=== PATIENT | male | born 1975 | race Caucasian/White ===

== ENCOUNTER 2021-04-15 14:37 | Emergency (ER) | payer SELFPAY ==
[~2021-04-15] VITALS: Ht 172.7 cm; Wt 95.2 kg
[2021-04-15] MEDS ORDERED: POTASSIUM CHLO20 ME1 PO (19:01)
[2021-04-15] MEDS ORDERED: LISINOPRIL10 MG PO (19:01)
[2021-04-15] MEDS ORDERED: LASIX40 MG PO (19:01)
[2021-04-15] MEDS ORDERED: TOPROL XL50 MG PO (19:01)
--- NOTE | 2021-04-15 19:18 | EKG ---
[facility] [address] [facility] [place], [place] [address] Signed Sinus tachycardia Nonspecific T wave abnormality Abnormal ECG No previous ECGs available Confirmed by JACOB VINSON DO ([id number]) on 04/15/2021 7:18:18 PM Electronically Signed By: JACOB VINSON DO 04/15/211917 PATIENT NAME: MILDRED ROBBINS Electrocardiogram DATE OF : 73 PHYSICIAN: JACOB VINSON DO REPORT #: [id number] REPORT IS CONFIDENTIAL AND NOT TO BE RELEASED WITHOUT AUTHORIZATION
== END 2021-04-15 19:27 | disposition home or self-care (01) ==
LOC: ED 14:37
DX: I16.0 Hypertensive urgency (principal); I11.0 Hypertensive heart disease with heart failure; I50.9 Heart failure, unspecified; Z20.822 Contact with and (suspected) exposure to COVID-19
CPT/HCPCS: 71045; 80053; 81001; 84443; 84484; 85025; 85379; 93005; 93010; 96374; 99285-25; C9803; J1940; U0003

== ENCOUNTER 2023-03-21 10:55 | Day surgery (SDC) | payer BC ==
[~2023-03-21] VITALS: Ht 172.7 cm; Wt 81.8 kg
[~2023-03-21 10:55] MED LIST: HYDROCODON-ACE1 EA10 PO; LASIX40 MG PO; LISINOPRIL10 MG PO; POTASSIUM CHLO20 ME1 PO; TOPROL XL50 MG PO
[2023-03-21 11:13] VITALS: BP 173/103
[2023-03-21] MEDS ORDERED: GABAPENTIN300 MG PO (11:19)
[2023-03-21] MEDS ORDERED: METFORMIN HCL500 MG PO (11:19)
--- NOTE | 2023-03-21 13:01 | NUR ---
03/21/23 13[address],[place] 1249 PT ARRIVED TO PACU ON 2L, PT WAKES EASILY AND DENIES CONCERNS. EDUCATION GIVEN ON PASSING GAS AND DC INSTRUCTIONS. PT ROLLS TO LEFT SIDE TO HELP PASS GAS. ALL QUESTIONS ANSWERED.
[2023-03-21 13:21] VITALS: BP 150/98
--- NOTE | 2023-03-23 08:40 | OR ---
[facility] [address] [place], [place] [address] Signed DATE OF OPERATION: 03/21/2023 SURGEON: Barrera Dos Santos MD PREOPERATIVE DIAGNOSIS: Weight loss and left-sided abdominal pain, recent anemia. POSTOPERATIVE DIAGNOSIS: Essentially normal colon and ileum. PROCEDURE: Total colonoscopy to cecum with intubation of ileum and biopsy of ileum, cecum and rectum. ANESTHESIA: Intravenous sedation, fentanyl 100 mcg and Versed 6 mg. INDICATIONS: This 47-year-old white man is a patient of Idalmis Ny M.D. He was in the emergency room in December of 2022 with complaints of left flank and abdominal pain, had a 15 pounds unintentional weight loss as well. He has had no blood per rectum or hematemesis. He has no family history of inflammatory bowel disease or colon cancer. He has had at least two years of similar such symptoms. A CT scan was performed in the emergency room showing no acute inflammatory process sigmoid and left colonic diverticula without evidence of acute diverticulitis. He still has some left lateral abdominal pain, it is not distinctly in the left lower quadrant. A recent hemoglobin was 9.2. 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 He has had no trauma or other etiology for anemia. He is admitted to undergo colonoscopy at this time. He understands the risk of bleeding, infection, and perforation. FINDINGS: The prep was excellent. Complete colonoscopy was undertaken to the cecum without question. Good intubation of the ileum. Biopsies were taken of the cecum, ileum, and rectum to assess for colitis, but all examined areas appeared normal otherwise. DESCRIPTION OF PROCEDURE: The patient was brought to the endoscopy suite and placed in lateral decubitus position given intravenous sedation to the point of slurred speech and nystagmus. Pre-procedure Lopressor 5 mg was given as he was slightly tachycardic with a heart rate of 110 and blood pressure was elevated. He has underlying hypertension and did not take his beta Electronically Signed By: BARRERA DOS SANTOS MD 03/23/23 0840 PATIENT NAME: MILDRED ROBBINS OPERATIVE REPORT DATE OF : 73 REPORT #: [id number] PHYSICIAN: BARRERA DOS SANTOS MD PCP: IDALMIS NY MD REPORT IS CONFIDENTIAL AND NOT TO BE RELEASED WITHOUT AUTHORIZATION [facility] [address] [place], [place] [address] Signed ernestina as recommended prior to today. He was then given intravenous sedation to the point of slurred speech and nystagmus with fentanyl and Versed. Good blood pressure control and pulse control was noted. Digital rectal examination was performed and normal. An Olympus video colonoscope was passed into the rectum and manipulated throughout the colon, ultimately intubating the cecum itself. The ileocecal valve and appendiceal orifice were normal. The scope was withdrawn from that point and manipulated throughout the colon, ultimately intubating the cecum itself. A good prep was noted. With various manipulations, the ileum was easily intubated and passed for several centimeter, it too appeared normal. There was no sign of ulceration or neoplasm. Biopsies were obtained. Scope was withdrawn and biopsies then taken of normal-appearing cecum. Careful withdrawal of scope showed no sign of abnormality throughout the colon. A biopsy was taken of the rectum to assess for occult colitis. Also, retroflex view was normal. The scope was removed. The patient was taken to the recovery room in good condition. CONCLUDING DIAGNOSIS: No lesion on colon to account for left-sided abdominal pain, anemia, or weight loss. PLAN: We will repeat his CBC today. We will consider upper endoscopy if he remains anemic. He will return to the ongoing care of Dr. Ny and will make appointment to see me in four weeks more or less. MD CIRILO Harris/NYAL /[id number] cc: Dr. Ny Copies: ~ Electronically Signed By: BARRERA DOS SANTOS MD 03/23/23 0840 PATIENT NAME: MILDRED ROBBINS OPERATIVE REPORT DATE OF : 73 REPORT #: [id number] PHYSICIAN: BARRERA DOS SANTOS MD PCP: IDALMIS NY MD REPORT IS CONFIDENTIAL AND NOT TO BE RELEASED WITHOUT AUTHORIZATION
--- NOTE | 2023-03-23 14:43 | PATH ---
[facility] [address] [place], [place] [address] Signed SPECIMEN(S): A ILEUM SPECIMEN(S): B CECUM COLON BIOPSY SPECIMEN(S): C RECTOSIGMOID BIOPSY SPECIMEN SOURCE: A. ILEUM B. CECUM COLON BIOPSY C. RECTOSIGMOID BIOPSY CLINICAL HISTORY: Left abdominal pain. Postop Dx: Normal colon and ileum. FINAL PATHOLOGIC DIAGNOSIS: A. Ileum, biopsy: - Benign small bowel-type mucosa, negative for specific diagnostic abnormality. B. Cecum colon biopsy: - Benign colonic mucosa, negative for specific diagnostic abnormality. C. Rectosigmoid biopsy: - Benign colonic mucosa, negative for specific diagnostic abnormality. JVR:[facility]:C2NR MICROSCOPIC EXAMINATION: Histologic sections of all submitted blocks are examined by light microscopy. These findings, together with the gross examination, support the pathologic diagnosis. GROSS DESCRIPTION: A. The specimen, labeled and designated "[place], ileum biopsy," is received in formalin and consists of two lin soft tissue fragments, ranging from 0.3-0.4 cm. Entirely submitted in (A1). B. The specimen, labeled and designated "[place], cecum colon biopsy," is received in formalin and consists of two lin soft tissue fragments, ranging from 0.3-0.4 cm. Entirely submitted in (B1). C. The specimen, labeled and designated "[place], rectosigmoid biopsy," is received in formalin and consists of two lin soft tissue fragments, ranging from 0.3-0.6 cm. Entirely submitted in (C1). VB (under the direct supervision of a pathologist) The Gross Description was prepared using a voice recognition system. The report was reviewed for accuracy; however, sound-alike word errors, addition and/or deletions may occur. If there is any PATIENT NAME: MILDRED ROBBINS PATHOLOGY DATE OF : 73 REPORT #: [id number] PHYSICIAN: LEE PATHOLOGY PCP: ROBBIE NY MD REPORT IS CONFIDENTIAL AND NOT TO BE RELEASED WITHOUT AUTHORIZATION [facility] [address] [place], [place] [address] Signed question about this report, please contact Client Services. PERFORMING LABORATORY: Technical component was performed by [facility], [address] [place] [address] (CLIA# [id number]). Professional interpretation was performed by [facility], [address] [place] [id number] (CLIA#: [id number]). Diagnostician: Rafat Das MD Pathologist Electronically Signed 03/23/2023 Copies: ~ PATIENT NAME: MILDRED ROBBINS PATHOLOGY DATE OF : 73 REPORT #: [id number] PHYSICIAN: LEE DAILEY PCP: ROBBIE NY MD REPORT IS CONFIDENTIAL AND NOT TO BE RELEASED WITHOUT AUTHORIZATION
== END 2023-03-21 14:02 | disposition home or self-care (01) ==
LOC: OPS 10:55 → DS 10:57 → OPS 12:00
PROVIDERS: ATTEND Surgery
PROC: 0DBP8ZX Excision of Rectum, Via Natural or Artificial Opening Endoscopic, Diagnostic (ICD-10-PCS; 2023-03-21)
PROC: 0DBB8ZX Excision of Ileum, Via Natural or Artificial Opening Endoscopic, Diagnostic (ICD-10-PCS; 2023-03-21)
PROC: 0DBH8ZX Excision of Cecum, Via Natural or Artificial Opening Endoscopic, Diagnostic (ICD-10-PCS; principal; 2023-03-21 12:00)
DX: R10.9 Unspecified abdominal pain (principal); R63.4 Abnormal weight loss; D64.9 Anemia, unspecified; I10 Essential (primary) hypertension; Z72.0 Tobacco use
CPT/HCPCS: 36415; 81001; 85025; 99153; G0500; J2250; J3010; J7121